=== PATIENT | female | born 1945 | race Caucasian/White ===

== ENCOUNTER 2016-07-15 07:55 | Day surgery (SDC) | payer MEDICARE, BC ==
[~2016-07-15 07:55] MED LIST: Lactated Ringers 1,000 ML IV SCH
[2016-07-15] MEDS ORDERED: Ondansetron 4 MG/2 ML SDV IVPUSH PRN (08:41)
[2016-07-15] MEDS ORDERED: Propofol 200 MG/20 ML SDV ONE ×2 (08:45→09:06)
[2016-07-15] MEDS ORDERED: fentaNYL 100 MCG/2 ML SDV ONE (08:45)
[2016-07-15 11:35] VITALS: BP 90/47
--- NOTE | 2016-07-16 09:02 | OR ---
SURGERY DATE: 07/15/2016. REFERRING PROVIDER: Dr. Vicki Wallis. PRE-OPERATIVE DIAGNOSES: 1. Resistant epigastric pain/dyspepsia for the last 1 year. The patient on Nexium since March and takes a significant amount of Tums antacid. 2. Gastroesophageal reflux disease. 3. Chronic intermittent diarrhea when she eats oats. POST-OPERATIVE DIAGNOSES: 1. Mild bile reflux into the stomach noted as well as a tiny sliding type hiatal hernia. 2. Otherwise normal appearing esophagogastroduodenoscopy. Biopsies were taken from the antrum to check for Helicobacter pylori. Biopsies also taken from the duodenum given her history of chronic intermittent diarrhea. PROCEDURE: Esophagogastroduodenoscopy with cold biopsy x2 separate areas (antrum and duodenum). SURGEON: Nick Kendrick M.D. ANESTHESIA: Monitored anesthesia care. INDICATION: Mel is a 70-year-old female who was brought to the endoscope suite after discussion of risks and benefits (including but not limited to reaction to medication, bleeding, infection, aspiration, perforation). Informed consent was obtained for monitored anesthesia care and esophagogastroduodenoscopy along with possible biopsy and/or dilatation. DESCRIPTION OF PROCEDURE: Pre-procedure exam including oral cavity was unremarkable. IV, oxygen, and monitors were placed. Topical anesthesia consisting of Cetacaine spray was used in the pharynx. Patient was placed in the left lateral position and sedation was administered. A bite block was placed gently and scope lightly lubricated and passed through the bite block and over the tongue. Hypopharynx and vocal cords were visualized and unremarkable. Scope was passed through the cricopharynx and into the esophagus. The scope was then passed through the distal esophagus and the GE junction was visualized and photographed. The GE junction was remarkable for a tiny sliding type hiatal hernia without any evidence of inflammation. Vocal cords were visualized and unremarkable. The scope was advanced into the stomach and gastric gallagher was suctioned. Pylorus was identified and intubated and then the scope was advanced to the third portion of the duodenum. The second and third portions of the duodenum were unremarkable. The duodenal bulb was visualized and unremarkable. The scope was brought back into the stomach. The pylorus and the antrum were unremarkable. Biopsies for H. pylori were obtained from the antrum. Cold biopsy x2 bites were taken from the duodenum. This area to check for H. pylori and sent for path. The scope was retroflexed to visualize the angularis, fundus, body, and cardia. These were all unremarkable. There was no evidence of any inflammation, ulceration, or masses. The stomach was desufflated of air and then the scope was slowly withdrawn, and the esophagus was closely visualized during withdrawal all the way into the posterior pharynx. In the upper esophagus there was an area of heterotopic type mucosa. Cold biopsy x2 bites was taken of this area and sent for path. The patient tolerated the procedure well and went to recovery in stable condition. The patient was monitored until at baseline status. Findings and discharge instructions were reviewed and the patient was discharged in good condition. COMPLICATIONS: None. TOTAL TIME: 10 minutes. ESTIMATED BLOOD LOSS: About 1 mL. RECOMMENDATIONS/FOLLOW-UP: Recommend the patient continue on her Nexium. If symptoms are not resolving after 4-8 weeks of PPI, consider other potential etiology of her abdominal pain. We will await results of path report to determine the need for any additional testing or treatment. If symptoms persist, may need to consider a bile reflux as a potential culprit. I would like to thank Vicki Wallis as well as Tanisha Ruffin for this referral. DMB: 07/15/2016 11:22:50 MODL: 07/15/2016 15:30:37 /[id number] SYLVIA
== END 2016-07-15 11:38 | disposition home or self-care (01) ==
LOC: VM.SDS 07:55
PROVIDERS: ATTEND Family Medicine
DX: K29.50 Unspecified chronic gastritis without bleeding (principal); K44.9 Diaphragmatic hernia without obstruction or gangrene; E78.5 Hyperlipidemia, unspecified; Z79.899 Other long term (current) drug therapy
CPT/HCPCS: 43239; J2405; J2704; J3010; J7120; 00810; 88305

== ENCOUNTER 2022-07-01 06:48 | Day surgery (SDC) | payer MEDICARE, BC ==
[2022-07-01] MEDS ORDERED: Sodium Chloride 0.9% 10 ML Syringe FLUSH PRN (07:00)
[2022-07-01] MEDS ORDERED: Lactated Ringers 1,000 ML IV SCH (07:00)
[2022-07-01] MEDS ORDERED: fentaNYL 100 MCG/2 ML SDV ONE (07:58)
[2022-07-01] MEDS ORDERED: Propofol 200 MG/20 ML SDV ONE (07:58)
[2022-07-01 09:11] VITALS: BP 152/62; PULSE 63
== END 2022-07-01 09:50 | disposition home or self-care (01) ==
LOC: VM.SDS 06:48
PROVIDERS: ATTEND Family Medicine
DX: K92.1 Melena (principal); K64.8 Other hemorrhoids; E78.5 Hyperlipidemia, unspecified; M81.0 Age-related osteoporosis without current pathological fracture; E03.9 Hypothyroidism, unspecified; M79.10 Myalgia, unspecified site; G43.909 Migraine, unspecified, not intractable, without status migrainosus; G47.00 Insomnia, unspecified; J30.9 Allergic rhinitis, unspecified; K21.9 Gastro-esophageal reflux disease without esophagitis; Z86.010 Personal history of colon polyps; Z79.82 Long term (current) use of aspirin; Z98.890 Other specified postprocedural states; Z79.899 Other long term (current) drug therapy; Z79.890 Hormone replacement therapy; Z87.891 Personal history of nicotine dependence
CPT/HCPCS: 00812; 45378; J2704; J7120; J3010

== ENCOUNTER 2023-10-12 08:13 | Inpatient (IN) | payer MEDICARE, BC ==
[2023-10-12 08:29] LABS: BASOPHILS PERCENT AUTO 0.1 % (0.2-1.2); EOSINOPHILS PERCENT AUTO 0.1 % (0.0-4.0); HEMATOCRIT 37.7 % (33.0-47.0); HEMOGLOBIN 13.1 g/dL (12.0-16.0); IMMATURE GRAN ABSOLUTE AUTO 0.16 x10^3/uL (0.00-0.07); LYMPHOCYTES ABSOLUTE AUTO 1.3 x10^3/uL (1.0-4.8); LYMPHOCYTES PERCENT AUTO 9.4 % (25.0-50.0); MEAN CORPUSCULAR HGB CONC 34.7 g/dL (32.0-36.0); MONOCYTES PERCENT AUTO 6.8 % (2.0-11.0); NEUTROPHILS ABSOLUTE AUTO 11.6 x10^3/uL (1.8-7.7); NEUTROPHILS PERCENT AUTO 82.5 % (50.0-80.0); PLATELET COUNT,PLT 261 x10^3/uL (130-400)
[2023-10-12 08:50] LABS: A/G RATIO 0.54; ALANINE AMINOTRANSFERASE,ALT 24 U/L (14-59); ALBUMIN 2.6 g/dL (3.4-5.0); ALKALINE PHOSPHATASE 111 U/L (46-116); ASPARTATE AMNIOTRANSFERASE,AST 28 U/L (15-37); BILIRUBIN TOTAL 1.5 mg/dL (0.2-1.0); BLOOD UREA NITROGEN,BUN 15 mg/dL (7-18); CALCIUM 8.8 mg/dL (8.5-10.1); CARBON DIOXIDE,CO2 26 mmol/L (21-32); CHLORIDE,CL 97 mmol/L (98-107); CREATININE 1.1 mg/dL (0.55-1.02); GLUCOSE RANDOM 103 mg/dL (70-99); POTASSIUM,K 3.4 mmol/L (3.5-5.1); PROTEIN TOTAL,TP 7.4 g/dL (6.4-8.2); SODIUM,NA 136 mmol/L (136-145)
[2023-10-12 08:51] LABS: ANION GAP 16.4 mmol/L (5-15); ESTIMATED GFR 51 mL/min (>=60)
[2023-10-12 09:08] LABS: CORONAVIRUS COVID-19 NAA NEGATIVE (NEGATIVE); INFLUENZA A NAA NEGATIVE (NEGATIVE); INFLUENZA B NAA NEGATIVE (NEGATIVE)
[2023-10-12] MEDS: cefTRIAXone 2 GM Vial IVPUSH ONE (09:18)
[2023-10-12] MEDS ORDERED: Acetaminophen 325 MG Tab PO PRN (10:40)
[2023-10-12] MEDS ORDERED: Ondansetron 4 MG Tab.DIS PO PRN (10:40)
[2023-10-12] MEDS ORDERED: Polyethylene Glycol 3350 Powder 17 GM Packet PO PRN (10:40)
[2023-10-12] MEDS ORDERED: Meclizine 25 MG Tab PO PRN (10:52)
[2023-10-12] MEDS: Azithromycin 500 MG in Sodium Chloride 0.9% 250 ML IV SCH (11:22)
[2023-10-12] MEDS: Sodium Chloride 0.9% 1,000 ML IV SCH (11:22)
[2023-10-12] MEDS: Benzonatate 100 MG Cap PO PRN (16:08)
[2023-10-12] MEDS: Albuterol/Ipratropium 3.0-0.5 MG/3 ML Neb Soln NEB PRN (16:09)
[2023-10-12] MEDS: Potassium Chloride 10 MEQ Tab.ER PO SCH (18:30)
[2023-10-12] MEDS: Enoxaparin 40 MG/0.4 ML Syringe SUBCUT SCH (20:13)
[2023-10-12] MEDS: DULoxetine 30 MG Cap PO SCH (20:13)
[2023-10-12] MEDS: DULoxetine 60 MG Cap PO SCH (20:13)
[2023-10-12] MEDS: guaiFENesin 600 MG Tab.ER PO SCH (20:13)
[2023-10-12] MEDS: Gabapentin 400 MG Cap PO SCH (20:14)
[2023-10-12] MEDS: Aspirin 81 MG Tab.EC PO SCH (20:14)
[2023-10-13] MEDS: Levothyroxine 25 MCG Tab PO SCH (06:20)
[2023-10-13 06:36] LABS: BASOPHILS PERCENT AUTO 0.1 % (0.2-1.2); EOSINOPHILS ABSOLUTE AUTO 0.1 x10^3/uL (0.0-0.5); EOSINOPHILS PERCENT AUTO 1.3 % (0.0-4.0); HEMATOCRIT 32.6 % (33.0-47.0); IMMATURE GRAN ABSOLUTE AUTO 0.26 x10^3/uL (0.00-0.07); LYMPHOCYTES ABSOLUTE AUTO 1.3 x10^3/uL (1.0-4.8); LYMPHOCYTES PERCENT AUTO 12.9 % (25.0-50.0); MEAN CORPUSCULAR HEMOGLOBIN 31.7 pg (26.0-32.0); MEAN CORPUSCULAR HGB CONC 33.7 g/dL (32.0-36.0); MEAN CORPUSCULAR VOLUME 93.9 fL (78.0-93.0); MONOCYTES PERCENT AUTO 10.2 % (2.0-11.0); NEUTROPHILS ABSOLUTE AUTO 7.3 x10^3/uL (1.8-7.7); NEUTROPHILS PERCENT AUTO 72.9 % (50.0-80.0); PLATELET COUNT,PLT 255 x10^3/uL (130-400); RED BLOOD CELL COUNT 3.47 x10^6/uL (4.00-5.50)
[2023-10-13 06:49] LABS: CREATININE 0.8 mg/dL (0.55-1.02); EST CRCL DRUG DOSING (CG) 47.17 mL/min; POTASSIUM,K 3.4 mmol/L (3.5-5.1)
[2023-10-13 06:50] LABS: ANION GAP 13.4 mmol/L (5-15)
[2023-10-13] MEDS: Formoterol/Mometasone 100-5 MCG 8.8 GM Inhaler IH SCH (08:22)
[2023-10-13] MEDS: Cyanocobalamin (Vitamin B12) 1,000 MCG Tab PO SCH (08:23)
[2023-10-13] MEDS: cefTRIAXone 1 GM Vial IVPUSH SCH (08:24)
[2023-10-13] MEDS: Tiotropium Bromide 4 GM Inhalation Spray (2.5mcg/1 dose; 10 doses) INH SCH (09:50)
[2023-10-13] MEDS: Ipratropium 0.06% Nasal Spray 15 ML Bottle NAS SCH (09:57)
[2023-10-13] MEDS ORDERED: methylPREDNISolone Sod Succ 40 MG in Sodium Chloride 0.9% 100 ML IV SCH (13:15)
[2023-10-13] MEDS: methylPREDNISolone Sodium Succinate 40 MG/1 ML SDV IV SCH (13:56)
[2023-10-13] MEDS: Calcium Carbonate 750 MG Tab.Chew PO PRN (20:33)
[2023-10-13] MEDS: Zolpidem 5 MG Tab PO PRN (23:46)
[2023-10-14 07:20] LABS: HEMATOCRIT 32.4 % (33.0-47.0); HEMOGLOBIN 11.3 g/dL (12.0-16.0); IMMATURE GRAN ABSOLUTE AUTO 0.29 x10^3/uL (0.00-0.07); LYMPHOCYTES ABSOLUTE AUTO 0.9 x10^3/uL (1.0-4.8); LYMPHOCYTES PERCENT AUTO 6.9 % (25.0-50.0); MEAN CORPUSCULAR HEMOGLOBIN 32.2 pg (26.0-32.0); MEAN CORPUSCULAR HGB CONC 34.9 g/dL (32.0-36.0); MEAN CORPUSCULAR VOLUME 92.3 fL (78.0-93.0); MONOCYTES ABSOLUTE AUTO 0.9 x10^3/uL (0.0-0.8); MONOCYTES PERCENT AUTO 6.6 % (2.0-11.0); NEUTROPHILS ABSOLUTE AUTO 10.8 x10^3/uL (1.8-7.7); NEUTROPHILS PERCENT AUTO 84.2 % (50.0-80.0); PLATELET COUNT,PLT 322 x10^3/uL (130-400); RED BLOOD CELL COUNT 3.51 x10^6/uL (4.00-5.50); WHITE BLOOD CELL COUNT,WBC 12.8 x10^3/uL (4.0-10.0)
[2023-10-14 07:35] LABS: CALCIUM 8.6 mg/dL (8.5-10.1); CREATININE 0.7 mg/dL (0.55-1.02); EST CRCL DRUG DOSING (CG) 53.91 mL/min; POTASSIUM,K 4.1 mmol/L (3.5-5.1)
[2023-10-14 07:36] LABS: ANION GAP 14.1 mmol/L (5-15)
[2023-10-14] MEDS: Azithromycin 250 MG Tab PO SCH (10:02)
[2023-10-14] MEDS: Potassium Chloride 10 MEQ Tab.ER PO SCH (10:04)
[2023-10-14] MEDS: Furosemide 20 MG/2 ML VIAL IV ONE ×2 (14:10→20:12)
[2023-10-14] MEDS: Albuterol 0.083% 2.5 MG/3 ML Neb Soln NEB SCH (14:11)
[2023-10-14] MEDS: Arformoterol 15 MCG/2 ML Neb Soln NEB SCH (14:13)
[2023-10-15 07:39] LABS: HEMATOCRIT 31.1 % (33.0-47.0); HEMOGLOBIN 10.8 g/dL (12.0-16.0); IMMATURE GRAN ABSOLUTE AUTO 0.32 x10^3/uL (0.00-0.07); LYMPHOCYTES ABSOLUTE AUTO 1.6 x10^3/uL (1.0-4.8); LYMPHOCYTES PERCENT AUTO 9.5 % (25.0-50.0); MEAN CORPUSCULAR HGB CONC 34.7 g/dL (32.0-36.0); MONOCYTES ABSOLUTE AUTO 1.3 x10^3/uL (0.0-0.8); MONOCYTES PERCENT AUTO 7.3 % (2.0-11.0); NEUTROPHILS ABSOLUTE AUTO 14.1 x10^3/uL (1.8-7.7); NEUTROPHILS PERCENT AUTO 81.3 % (50.0-80.0); PLATELET COUNT,PLT 425 x10^3/uL (130-400); RED BLOOD CELL COUNT 3.38 x10^6/uL (4.00-5.50); WHITE BLOOD CELL COUNT,WBC 17.3 x10^3/uL (4.0-10.0)
[2023-10-15 07:46] LABS: CALCIUM 9.3 mg/dL (8.5-10.1); CREATININE 0.8 mg/dL (0.55-1.02); EST CRCL DRUG DOSING (CG) 47.17 mL/min; POTASSIUM,K 3.4 mmol/L (3.5-5.1)
[2023-10-15 07:56] LABS: ANION GAP 14.4 mmol/L (5-15)
[2023-10-16 07:40] LABS: HEMATOCRIT 31.7 % (33.0-47.0); HEMOGLOBIN 10.9 g/dL (12.0-16.0); MEAN CORPUSCULAR HEMOGLOBIN 31.8 pg (26.0-32.0); MEAN CORPUSCULAR HGB CONC 34.4 g/dL (32.0-36.0); MEAN CORPUSCULAR VOLUME 92.4 fL (78.0-93.0); PLATELET COUNT,PLT 507 x10^3/uL (130-400); RED BLOOD CELL COUNT 3.43 x10^6/uL (4.00-5.50); WHITE BLOOD CELL COUNT,WBC 14.9 x10^3/uL (4.0-10.0)
[2023-10-16 07:56] LABS: CALCIUM 9.3 mg/dL (8.5-10.1); CREATININE 0.8 mg/dL (0.55-1.02); EST CRCL DRUG DOSING (CG) 47.17 mL/min; POTASSIUM,K 3.7 mmol/L (3.5-5.1)
[2023-10-16 08:05] LABS: ANION GAP 11.7 mmol/L (5-15)
[2023-10-16 08:10] LABS: BAND PERCENT MAN 2 % (0-6); EOSINOPHILS ABSOLUTE MAN 0.1 x10^3/uL (0.0-0.5); EOSINOPHILS PERCENT MAN 1 % (0-4); LYMPHOCYTES ABSOLUTE MAN 3.4 x10^3/uL (1.0-4.8); LYMPHOCYTES PERCENT MAN 23 % (25-50); MONOCYTES ABSOLUTE MAN 0.3 x10^3/uL (0.0-0.8); MONOCYTES PERCENT MAN 2 % (2-11); SEG NEUTROPHILS PERCENT MAN 72 % (50-80)
[2023-10-17 07:02] LABS: CALCIUM 9.4 mg/dL (8.5-10.1); CREATININE 0.9 mg/dL (0.55-1.02); EST CRCL DRUG DOSING (CG) 41.93 mL/min; MEAN CORPUSCULAR HGB CONC 34.3 g/dL (32.0-36.0); MEAN CORPUSCULAR VOLUME 93.3 fL (78.0-93.0); PLATELET COUNT,PLT 546 x10^3/uL (130-400); POTASSIUM,K 3.9 mmol/L (3.5-5.1); RED BLOOD CELL COUNT 3.75 x10^6/uL (4.00-5.50); WHITE BLOOD CELL COUNT,WBC 14.9 x10^3/uL (4.0-10.0)
[2023-10-17 07:07] LABS: ANION GAP 15.9 mmol/L (5-15)
[2023-10-17 07:12] LABS: BAND PERCENT MAN 7 % (0-6); LYMPHOCYTES ABSOLUTE MAN 2.8 x10^3/uL (1.0-4.8); LYMPHOCYTES PERCENT MAN 19 % (25-50); MONOCYTES PERCENT MAN 7 % (2-11); PLATELET COUNT ESTIMATE INCREASED; SEG NEUTROPHILS PERCENT MAN 67 % (50-80)
[2023-10-17] MEDS: Doxycycline Monohydrate 100 MG Cap PO SCH (12:34)
[2023-10-17 13:21] VITALS: BP 122/62; PULSE 82
== END 2023-10-17 13:15 | disposition home or self-care (01) | DRG 193 ==
LOC: VM.ED 08:13 → VM.MS 09:26
PROVIDERS: ADMIT Physician Assistant; ATTEND Physician Assistant
DX: J18.9 Pneumonia, unspecified organism (principal); J96.01 Acute respiratory failure with hypoxia; J44.0 Chronic obstructive pulmonary disease with (acute) lower respiratory infection; J44.1 Chronic obstructive pulmonary disease with (acute) exacerbation; E03.9 Hypothyroidism, unspecified; G89.29 Other chronic pain; M81.0 Age-related osteoporosis without current pathological fracture; J43.9 Emphysema, unspecified; G47.00 Insomnia, unspecified; E78.00 Pure hypercholesterolemia, unspecified; K21.9 Gastro-esophageal reflux disease without esophagitis; G25.81 Restless legs syndrome; E86.0 Dehydration; F41.1 Generalized anxiety disorder; I50.9 Heart failure, unspecified; M54.9 Dorsalgia, unspecified; Z79.82 Long term (current) use of aspirin; Z79.899 Other long term (current) drug therapy; Z86.010 Personal history of colon polyps; Z98.890 Other specified postprocedural states; Z87.891 Personal history of nicotine dependence; Z86.16 Personal history of COVID-19
CPT/HCPCS: 0240U; 36415; 71045; 71046; 80048; 80053; 83605; 83880; 85025; 94640; 95851-GO; 96374; 97116-GP; 97161-GP; 97165-GO; 97535-GO; 99284; 99285-25; A9270-GY; J0456; J0696; J1650; J1940; J2919; J3490; J7030; J7050; J7613-GY; J7620-GY